=== PATIENT | female | born 1975 | race Caucasian/White ===

== ENCOUNTER → 2020-05-03 | Outpatient (CLI) | payer OTHER | LOC: MC.RAD 12:47 | DX: Z12.31 Encounter for screening mammogram for malignant neoplasm of breast (principal); Z98.82 Breast implant status ==

== ENCOUNTER → 2020-05-17 | Outpatient (CLI) | payer OTHER | LOC: COL.RAD 05-08 13:15 | DX: D33.3 Benign neoplasm of cranial nerves (principal); G47.419 Narcolepsy without cataplexy ==

== ENCOUNTER → 2020-12-17 | Outpatient (CLI) | payer OTHER ==
[~2020-12-17] MED LIST: B-121000 MCG PO; CALCIUM CARBON650 M2 PO; KLONOPIN 0.5MG0.5 MG PO; MASON NATURAL2000 IU PO; NEURONTIN300 MG/CAP PO; PROTONIX 40MG T40 MG PO; ULTRAM 50MG TAB50 MG PO
== END ==
LOC: COL.RAD 06:37
DX: K44.9 Diaphragmatic hernia without obstruction or gangrene (principal); K21.9 Gastro-esophageal reflux disease without esophagitis; K59.00 Constipation, unspecified
CPT/HCPCS: A9541

== ENCOUNTER → 2021-01-27 | Outpatient (CLI) | payer OTHER | LOC: COL.RAD 07:49 | DX: H74.8X2 Other specified disorders of left middle ear and mastoid (principal); G43.709 Chronic migraine without aura, not intractable, without status migrainosus | CPT/HCPCS: A9585 ==

== ENCOUNTER → 2021-01-30 | Outpatient (CLI) | payer OTHER | LOC: COL.RAD 07:07 | DX: K21.9 Gastro-esophageal reflux disease without esophagitis (principal); R14.2 Eructation ==

== ENCOUNTER → 2021-02-05 | Outpatient (CLI) | payer OTHER | LOC: COL.RAD 10:34 | DX: K21.9 Gastro-esophageal reflux disease without esophagitis (principal) ==

== ENCOUNTER 2021-02-12 05:12 | Day surgery (SDC) | payer OTHER ==
[~2021-02-12] VITALS: Ht 162.6 cm; Wt 81.8 kg
[2021-02-12] VITALS (11 sets, daily range): BP systolic 99–113; BP diastolic 47–70; PULSE 56–79; TEMP 97.7–98.4
[2021-02-12] MEDS ORDERED: KLONOPIN 0.5MG0.5 MG PO (05:47)
[2021-02-12] MEDS ORDERED: NEURONTIN300 MG/CAP PO (05:47)
[2021-02-12] MEDS ORDERED: CALCIUM CARBON650 M2 PO (05:48)
[2021-02-12] MEDS ORDERED: MASON NATURAL2000 IU PO (05:48)
[2021-02-12] MEDS ORDERED: PROTONIX 40MG T40 MG PO (05:49)
[2021-02-12] MEDS ORDERED: B-121000 MCG PO (06:09)
--- NOTE | 2021-02-12 09:55 | NUR ---
Patient to room via bed from PACU. Alert and oriented but drowsy. Having some discomfort in shoulder area. Explain to the patient that this is normal and due to the gas they use during the procedure and as we get her up moving around more it will get better. Lap sites x6 to abd with bandaids CDI. [place] to room. Water provided.
--- NOTE | 2021-02-12 11:44 | NUR ---
Resting in bed with eyes closed. Respirations even and unlabored. No signs or symptoms of discomfort noted at this time.
--- NOTE | 2021-02-12 12:50 | NUR ---
Ambulate with the patient around surgical floor. Patient gait slow, unsteady at times. 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 Patient returns to room. Able to void without difficulty. Assisted into comfortable position in bed. Patient continues to have pain in upper chest and shoulder area from the gas and would like pain medication if able. Will administer as prescribed. Patient will call kitchen to see what they have to offer on the diet she is on. Denies additional needs.
--- NOTE | 2021-02-12 15:11 | NUR ---
Lying in bed with eyes open. Continues to have pain in upper chest and shoulders. Patient ambulates in halls with assist of this nurse, ambulates to medical and then around surgical floor. Returns to room and gets in bed. Denies additional needs or concerns at this time.
--- NOTE | 2021-02-12 18:10 | NUR ---
Sitting up in bed watching iPad. Patient continues to have discomfort in chest and shoulders from the gas. Tylenol administered as prescribed per patient request. Patient has IS to use as instructed. Warm blankets applied to chest area. Patient denies additional needs at this time.
--- NOTE | 2021-02-12 20:30 | NUR ---
Patient has complaints of pain in her chest/shoulder and requests to take a walk around the unit and some pain medication. Ultram administered with night medications. Patient has no complaints of nasuea at this time. SCDs on bilateral lower extremities. 6 lap sites to abdomen clean, dry, and intact. No other needs at this time.
[2021-02-13 04:19] VITALS: BP 99/51; PULSE 71; TEMP 98.6
--- NOTE | 2021-02-13 06:42 | NUR ---
Sitting up in bed with eyes open. Alert and oriented x4. Rates pain in abd and chest area 5/10. Patient says that the gas pains in her chest are a little better from yesterday. Continues to try to cough and deep breathe as well as use incentive spirometer to help keep lungs open. Abd lap sites x6 with bandaids CDI. Urinating without difficulty. Does not feel that she has passed gas yet. Patient says that she did not walk very much through the night but will get up this morning and start walking around. Denies additional needs at this time.
--- NOTE | 2021-02-13 06:50 | NUR ---
Patient ambulating around medical/surgical floor.
[2021-02-13] MEDS ORDERED: ULTRAM 50MG TAB50 MG PO (07:16)
[2021-02-13 07:47] VITALS: BP 102/56; PULSE 75; TEMP 98.2
--- NOTE | 2021-02-13 08:04 | NUR ---
Patient asks when she will be discharged. Explain that we need to get her paperwork together. Patient says that she does not have a follow up with Dr. Ford scheduled but he told her that his office will call her to set that up. Patient says that her [id number] is on her way to pick her up. Explain that we will get her packet together and come in to go over the discharge information with her.
--- NOTE | 2021-02-13 08:27 | NUR ---
Review all discharge instructions with the patient. Denies questions, verbalizes understanding to all. Signs all discharge paperwork. Discharge packet provided to the patient. Patient will use call light when ready to be walked out.
--- NOTE | 2021-02-13 08:57 | NUR ---
Patient [id number] here and patient calls out and says that she is ready to be taken out. Patient walked to [facility] by CLAIR Echols, with all belongings.
== END 2021-02-13 08:57 | disposition home or self-care (01) ==
LOC: SDCO 05:12 → SURG 09:47 → SDCO 02-13 08:57
DX: K44.9 Diaphragmatic hernia without obstruction or gangrene (principal); K21.9 Gastro-esophageal reflux disease without esophagitis; H91.92 Unspecified hearing loss, left ear; G62.9 Polyneuropathy, unspecified; F41.9 Anxiety disorder, unspecified; Z79.899 Other long term (current) drug therapy; Z90.710 Acquired absence of both cervix and uterus; Z85.828 Personal history of other malignant neoplasm of skin; Z20.822 Contact with and (suspected) exposure to COVID-19; Z87.19 Personal history of other diseases of the digestive system; Z88.8 Allergy status to other drugs, medicaments and biological substances; Z88.2 Allergy status to sulfonamides; Z88.5 Allergy status to narcotic agent; Z86.010 Personal history of colon polyps; Z98.51 Tubal ligation status; Z80.0 Family history of malignant neoplasm of digestive organs; Z80.1 Family history of malignant neoplasm of trachea, bronchus and lung; Z82.49 Family history of ischemic heart disease and other diseases of the circulatory system; Z83.3 Family history of diabetes mellitus
CPT/HCPCS: OP; A9284; J0690; J1100; J1170; J1200; J1885; J2405; J2704; J7120

== ENCOUNTER 2021-06-05 14:52 | Outpatient (CLI) | payer OTHER ==
[~2021-06-05] VITALS: Ht 162.6 cm; Wt 74.0 kg
[2021-06-05 16:10] VITALS: BP 100/62; PULSE 61; TEMP 98.6
== END 2021-06-05 18:23 | disposition home or self-care (01) ==
LOC: EUO 14:52
DX: E86.0 Dehydration (principal); U07.1 COVID-19
CPT/HCPCS: J7030

== ENCOUNTER → 2021-08-25 | Outpatient (CLI) | payer OTHER | LOC: MC.RAD 07:28 | DX: Z12.31 Encounter for screening mammogram for malignant neoplasm of breast (principal); Z98.82 Breast implant status ==

== ENCOUNTER → 2022-08-14 | Outpatient (CLI) | payer OTHER | LOC: COL.RAD 13:36 | DX: D33.3 Benign neoplasm of cranial nerves (principal); H74.8X2 Other specified disorders of left middle ear and mastoid | CPT/HCPCS: A9575 ==